=== PATIENT | male | born 1995 | race Caucasian/White ===

== ENCOUNTER 2019-10-20 17:44 | Emergency (ER) | payer OTHER, SELFPAY ==
[2019-10-20 17:53] VITALS: BP 178/99; PULSE 84; RESP 20; TEMP 37.2; O2SAT 98
--- NOTE | 2019-10-20 18:04 | ED.WOUNDLAC ---
HPI - Wound/Laceration General Chief Complaint: Wound/Laceration Stated Complaint: right side face swollen Time Seen by Provider: 10/20/19 18:04 Source: patient History of Present Illness HPI narrative: Patient presents with tenderness and swelling to the right side of his face. Patient states 1 week ago he popped a pimple on the right side of his face and now it has become an more swollen tender to touch and warm to touch. No drainage no streaking. Patient has not taken thing [id number]. Patient denies any fever denies any malaise. Normal appetite normal activity normally healthy patient. Location: face (ride side of lip and face 0.2cm by 0.2 cm area warm and tender to touch) Related Data Allergies Allergy/AdvReac Type Severity Reaction Status Date / Time diphenhydramine Allergy Hives Verified 10/20/19 18:02 [From Benadryl] Penicillins Allergy Anaphylaxis Verified 10/20/19 18:02 Review of Systems Review of Systems: Narrative: CONSTITUTIONAL: Denies fever, chills, or sweats. EYES: Denies visual changes, redness, or discharge. ENT: Denies rhinorrhea, congestion, sore throat, or otalgia. CARDIOVASCULAR: Denies chest pain, palpitations, or edema. RESPIRATORY: Denies cough or dyspnea. GASTROINTESTINAL: Denies abdominal pain, nausea, vomiting, or diarrhea. GENITOURINARY: Denies dysuria or hematuria. SKIN: Denies rash or itching. MUSCULOSKELETAL: Denies back pain, joint pain, or myalgia. NEUROLOGIC: Denies headache, numbness, or weakness. PSYCHIATRIC: Denies anxiety or depression. Exam Narrative: Exam Narrative: GENERAL: Well-appearing, well-nourished, and in no acute distress. HEAD: Normocephalic, atraumatic. EYES: PERRLA and EOMI. ENT: Nares clear, no rhinorrhea or epistaxis. Mucous membranes moist. NECK: Supple. CHEST: Clear to auscultation. No respiratory distress. HEART: Regular rate and rhythm. No murmur heard. Normal peripheral pulses. ABDOMEN: Soft, nontender, nondistended, normal active bowel sounds. EXTREMITIES: Normal range of motion. No edema. SKIN: Warm, dry, no rash.0.2cm by 0.2 cm area of tenderness no induration no fluctuance no streaking and no drainage to right sideof face and corner of lip. no streaking and no drainage . NEURO: No focal deficits. Alert and oriented x3. Marjorie Coma Scale Eye Opening: Spontaneous 4 [place] Coma Scale Motor: Obeys Commands 6 Marjorie Coma Scale Verbal: Oriented 5 [place] Coma Scale Total 15 Course Vital Signs Vital signs: Vital Signs Temperature 37.2 C 10/20/19 17:53 Pulse Rate 84 10/20/19 17:53 Respiratory Rate 20 10/20/19 17:53 Blood Pressure 178/99 H 10/20/19 17:53 Pulse Oximetry 98 10/20/19 17:53 Temperature 37.2 C 10/20/19 17:53 Pulse Rate 84 10/20/19 17:53 Respiratory Rate 20 10/20/19 17:53 Blood Pressure 178/99 H 10/20/19 17:53 Pulse Oximetry 98 10/20/19 17:53 Addressed elevated BP today. Today's blood pressure higher than recommended range. Discussed importance of follow -up with PCP and possible roasterman effects/cardiovascular events related to HTN. Currently patient denies headache, dizziness, vision changes, CP or shortness of breath. blood pressure re check 160/80 MDM - Wound/Laceration MDM Narrative Medical decision making narrative: Discussed red flags with patient when to go to ER. Discussed with patient need to apply warm packs and take medication with food as prescribed until gone. Discussed with patient should see improvement in 24 to 48 hours. If any worsening of condition go to ER immediately for further evaluation treatment. Discussed need to follow-up with primary care provider in 1 to 2 days for further evaluation treatment. Patient agreeable with plan of care Differential Diagnosis Differential diagnosis: Likely abscess, abrasion, avulsion of skin and other Critical Care Time Critical Care Time Critical Care Time: No Discharge Plan Discharge Clinical Impression: Abscess Patient Dis
== END 2019-10-20 18:17 | disposition home or self-care (01) ==
PROVIDERS: Emergency Provider Nurse Practitioner Family
DX: L02.01 Cutaneous abscess of face (principal)
CPT/HCPCS: 99213; G0463

== ENCOUNTER 2020-01-26 08:32 | Emergency (ER) | payer OTHER, SELFPAY ==
[2020-01-26 08:45] VITALS: BP 154/88; PULSE 74; RESP 18; TEMP 36.8; O2SAT 98
--- NOTE | 2020-01-26 08:48 | ED.EYEPROB ---
HPI - Eye Problem General Chief complaint: Eye Problems Stated complaint: eye red/swollen Source: patient and RN notes reviewed Mode of arrival: ambulatory Limitations: no limitations History of Present Illness HPI Narrative: This is a 24 years old male presents to the office for an evaluation of left eye irritation since yesterday.He was working on a drywall and it fells onto his eyes throughout protect eyeglasses.He was wearing contact lenses underneath the protective eyeglasses. He flushed his eyes out immediate post injury; however he still feel like there is something still in there. Denies photosensitivity. He wears both glasses and contact lenses. Denies any other medical history include hypertension, diabetes, or high cholesterol. Related Data Allergies Allergy/AdvReac Type Severity Reaction Status Date / Time diphenhydramine Allergy Hives Verified 01/26/20 08:39 [From Benadryl] Penicillins Allergy Anaphylaxis Verified 01/26/20 08:39 Review of Systems Review of Systems: Narrative: CONSTITUTIONAL: Denies fever or feeling ill EYES: Reports left eye irritation without photosensivity. ENT: Denies congestion CARDIOVASCULAR: Denies chest pain RESPIRATORY: Denies dyspnea GASTROINTESTINAL: Denies abdominal pain, nausea, vomiting SKIN: Denies rash MUSCULOSKELETAL: Denies joints pain NEUROLOGIC: Denies lightheaded/headache PMFSH Surgical History Surgical History (Updated 01/26/20 @ 08:50 by JEF Thomas) History of repair of ACL right side Comments At time of signature, I agree with nursing past medical, surgical, social and family history. There is no relevant family history pertinent to the presenting complaint. Exam Narrative: Exam Narrative: GENERAL: This is a well-nourished, well-developed patient, in no apparent distress. EYES: PERRL. EMOI. Right sclera clear/white. Topical anesthetic was instilled with good anesthesia using 1gtt of opth anesthetic agent (tetracaine) into left eye. Fluorescein stain of the L eye was performed with uptake of dye at 9'oclock. No epithelial defect was noted. NO FB, ulcer or dendritic lesions. Upper lid was everted and no FB or lesions were noted. Normal saline irrigation eye solution was performed and the patient tolerated the procedure well, no adverse reaction or complications. Vision is grossly intact. CARDIOVASCULAR: Regular rate and rhythm without murmurs, gallops, or rubs. RESPIRATORY: Clear to auscultation. Breath sounds equal bilaterally. No wheezes, rales, or rhonchi. GASTROINTESTINAL: Abdomen soft, non-tender, nondistended. Bowel sounds are active. No guarding. NEURO: awake, alert, and oriented to person, place and time. There were no obvious focal neurologic abnormalities. Steady gait [place] Coma Scale Eye Opening: Spontaneous 4 Marjorie Coma Scale Motor: Obeys Commands 6 [place] Coma Scale Verbal: Oriented 5 Course Vital Signs Vital signs: Vital Signs Temperature 98.3 F 01/26/20 08:45 Pulse Rate 74 01/26/20 08:45 Respiratory Rate 18 01/26/20 08:45 Blood Pressure 154/88 H 01/26/20 08:45 Pulse Oximetry 98 01/26/20 08:45 Temperature 98.3 F 01/26/20 08:45 Pulse Rate 74 01/26/20 08:45 Respiratory Rate 18 01/26/20 08:45 Blood Pressure 154/88 H 01/26/20 08:45 Pulse Oximetry 98 01/26/20 08:45 MDM - Eye Problem MDM Narrative Medical decision making narrative: Elevated BP noted: patient is informed that they may have pre-hypertension or hypertension based on a blood pressure reading in the department. I recommend the patient call the primary care provider listed on their discharge instructions or a physician of their choice this week to arrange follow-up for further evaluation of possible pre-hypertension or hypertension within 1-2week. Discharge instructions reviewed with patient, as well as provided in writing per nursing staff. The instructions also include specific and strict return/GO TO THE ER as well
== END 2020-01-26 09:10 | disposition home or self-care (01) ==
PROVIDERS: Emergency Provider Nurse Practitioner
DX: S05.02XA Injury of conjunctiva and corneal abrasion without foreign body, left eye, initial encounter (principal); R03.0 Elevated blood-pressure reading, without diagnosis of hypertension; W22.8XXA Striking against or struck by other objects, initial encounter
CPT/HCPCS: 99213; A9270; G0463

== ENCOUNTER 2020-04-04 11:25 | Emergency (ER) | payer OTHER, SELFPAY ==
[2020-04-04 11:42] VITALS: BP 156/98; PULSE 102; RESP 20; TEMP 37.6; O2SAT 98
--- NOTE | 2020-04-04 11:42 | ED.GENADULT ---
HPI - General Adult General Chief complaint: Skin/Abscess/Foreign Body Stated complaint: cyst on testicle Time Seen by Provider: 04/04/20 11:42 Source: patient Mode of arrival: ambulatory Limitations: no limitations History of Present Illness HPI narrative: 24-year-old male patient presents to the [facility] with complaints of what he thinks might be a cyst on to his right testicle for the past 2 days. Patient states it is a little tender. Patient states that he is sexually active but is in a monogamous relationship with his and is not concerned for any STDs. Patient denies any damage to the testicles or any trauma to the testicles that he is aware of. Denies any fevers, body aches or chills. Related Data Allergies Allergy/AdvReac Type Severity Reaction Status Date / Time diphenhydramine Allergy Hives Verified 04/04/20 11:50 [From Benadryl] Penicillins Allergy Anaphylaxis Verified 04/04/20 11:50 Review of Systems Review of Systems: Narrative: CONSTITUTIONAL: Denies fever, chills, or sweats. EYES: Denies visual changes, redness, or discharge. ENT: Denies rhinorrhea, congestion, sore throat, or otalgia. CARDIOVASCULAR: Denies chest pain, palpitations, or edema. RESPIRATORY: Denies cough or dyspnea. GASTROINTESTINAL: Denies abdominal pain, nausea, vomiting, or diarrhea. GENITOURINARY: Denies dysuria or hematuria. Positive pain and swelling to right testicle x2 days SKIN: Denies rash or itching. MUSCULOSKELETAL: Denies back pain, joint pain, or myalgia. NEUROLOGIC: Denies headache, numbness, or weakness. PSYCHIATRIC: Denies anxiety or depression. PMFSH Surgical History Surgical History History of repair of ACL right side Comments At the time of my signature I agree with nursing past medical history, surgical, social, and family history. There is no relevant family history pertinent to the presenting complaint. Exam Narrative: Exam Narrative: GENERAL: Well-appearing, well-nourished, and in no acute distress. HEAD: Normocephalic, atraumatic. EYES: PERRLA and EOMI. ENT: Nares clear, no rhinorrhea or epistaxis. Mucous membranes moist. NECK: Supple. No lymphadenopathy CHEST: Clear to auscultation. No respiratory distress. HEART: Regular rate and rhythm. No murmur heard. Normal peripheral pulses. ABDOMEN: Soft, nontender, nondistended, normal active bowel sounds. : Normal external genitalia, circumcised male. No lesions or rash present. Urinary meat us clear. Foreskin retracts easily. Patient does have slight erythema and swelling noted to the right testicle with what appears to be small scabbed area and on palpation it does appear to be a little bit harder around the scabbed area possibly an abscess. Transillumination was done and the area is not transilluminated however again there is an obvious wound noted to the right testicle. No active drainage at this time. EXTREMITIES: Normal range of motion. No edema. SKIN: Warm, dry, no rash. NEURO: No focal deficits. Alert and oriented x3. Course Vital Signs Vital signs: Vital Signs Temperature 37.6 C H 04/04/20 11:42 Pulse Rate 102 H 04/04/20 11:42 Respiratory Rate 04/04/20 11:42 Blood Pressure 156/98 H 04/04/20 11:42 Pulse Oximetry 98 04/04/20 11:42 Temperature 37.6 C H 04/04/20 11:42 Pulse Rate 102 H 04/04/20 11:42 Respiratory Rate 04/04/20 11:42 Blood Pressure 156/98 H 04/04/20 11:42 Pulse Oximetry 98 04/04/20 11:42 Vital signs reviewed. The patient has been informed that they may have pre-hypertension or Hypertension based on a BP reading in the department. I recommend that the patient call the primary care provider listed on their discharge instructions or a physician of their choice this week to arrange follow up for further evaluation of possible pre-hypertension or Hypertension Medical Decision Making Differential Diagnosis Differential Diagnosis: Differentia
== END 2020-04-04 12:20 | disposition home or self-care (01) ==
PROVIDERS: Emergency Provider Nurse Practitioner Family
DX: N45.4 Abscess of epididymis or testis (principal)
CPT/HCPCS: 99213; G0463

== ENCOUNTER 2020-10-25 11:36 | Emergency (ER) | payer OTHER, SELFPAY ==
--- NOTE | 2020-10-25 11:55 | PC.NURSE ---
1139 following registration, at onset of triage, pt informs staff his symptoms started at work today and workplace is requesting a rapid covid test and work note before returning. provider states will not do a rapid test today since symptoms just started , however a covid pcr could be ordered. also states will not give a work note releasing pt to go back to work. pt aware and states he does not want to be seen at this time.
== END 2020-10-25 11:39 | disposition left against medical advice (07) ==
LOC: EXPBETH 11:40
PROVIDERS: Emergency Provider Nurse Practitioner Family
DX: Z53.21 Procedure and treatment not carried out due to patient leaving prior to being seen by health care provider (principal)
CPT/HCPCS: 99199